=== PATIENT | female | born 1930 | race Caucasian/White ===

== ENCOUNTER 2016-06-03 18:01 | Emergency (ER) | payer MEDICARE, BC | END 2016-06-03 23:38 | disposition home or self-care (01) | DX: S20.229A Contusion of unspecified back wall of thorax, initial encounter (principal); W01.0XXA Fall on same level from slipping, tripping and stumbling without subsequent striking against object, initial encounter; G20 Parkinson's disease; M19.90 Unspecified osteoarthritis, unspecified site ==

== ENCOUNTER 2016-06-10 | Outpatient (CLI) | payer MEDICARE, BC | END 2016-06-10 12:40 | disposition critical access hospital (66) | DX: R46.4 Slowness and poor responsiveness (principal) | CPT/HCPCS: A0425; A0427 ==

== ENCOUNTER 2016-06-10 13:15 | Emergency (ER) | payer MEDICARE, BC ==
[2016-06-10] MEDS ORDERED: SODIUM CHLORIDE 0.9% 1,000 ML IV ONE (13:38)
== END 2016-06-10 15:50 | disposition home or self-care (01) ==
DX: R41.82 Altered mental status, unspecified (principal); I50.9 Heart failure, unspecified; G20 Parkinson's disease; R13.10 Dysphagia, unspecified; Z93.1 Gastrostomy status; M19.90 Unspecified osteoarthritis, unspecified site

== ENCOUNTER 2016-06-30 13:34 | Outpatient (CLI) | payer MEDICARE, BC | END 2016-06-30 13:35 | disposition home or self-care (01) | DX: I50.9 Heart failure, unspecified (principal) ==

== ENCOUNTER 2016-07-01 22:42 | Emergency (ER) | payer MEDICARE, BC ==
[2016-07-02] MEDS ORDERED: levoFLOXacin 250 MG TABLET PO STA (02:22)
[2016-07-02] MEDS ORDERED: levoFLOXacin 250 MG TABLET PO ONE (02:24)
== END 2016-07-02 02:37 | disposition home or self-care (01) ==
DX: J18.9 Pneumonia, unspecified organism (principal); G20 Parkinson's disease; K22.0 Achalasia of cardia; Z93.1 Gastrostomy status
CPT/HCPCS: 36415; 71020; 76705; 80053; 81003; 83690; 84484; 85025; 99283; 99284; A9270

== ENCOUNTER 2016-08-11 22:02 | Emergency (ER) | payer MEDICARE, BC ==
[2016-08-11] MEDS ORDERED: ALBUTEROL NEB 2.5 MG/3 ML INH STA (23:21)
[2016-08-11] MEDS ORDERED: ALBUTEROL NEB 2.5 MG/3 ML INH ONE (23:29)
[2016-08-12] MEDS ORDERED: ONDANSETRON 4 MG/2 ML VIAL IVP STA (00:08)
[2016-08-12] MEDS ORDERED: ONDANSETRON 4 MG/2 ML VIAL ONE (00:09)
[2016-08-12] MEDS ORDERED: LORazepam 2 MG/ML SYRINGE IVP STA ×2 (06:49→08:47)
[2016-08-12] MEDS ORDERED: LORazepam 2 MG/ML SYRINGE ONE ×2 (06:54→08:49)
[2016-08-12] MEDS ORDERED: SODIUM CHLORIDE 0.9% 1,000 ML IV ONE (11:21)
== END 2016-08-12 16:17 | disposition short-term general hospital (02) ==
DX: J69.0 Pneumonitis due to inhalation of food and vomit (principal); K22.2 Esophageal obstruction; G20 Parkinson's disease
CPT/HCPCS: 36415; 71010; 80048; 80053; 83690; 83880; 84484; 85025; 85379; 93005; 94640; 96361; 96365; 96375; 96376; 99284; 99285; J2060; J7613

== ENCOUNTER 2016-08-12 16:26 | Outpatient (CLI) | payer MEDICARE, BC | END 2016-08-12 16:27 | disposition short-term general hospital (02) | DX: R06.00 Dyspnea, unspecified (principal); R10.9 Unspecified abdominal pain; R09.89 Other specified symptoms and signs involving the circulatory and respiratory systems | CPT/HCPCS: A0170; A0425; A0426 ==

== ENCOUNTER 2016-10-10 14:07 | Outpatient (CLI) | payer MEDICARE, BC | END 2016-10-10 14:08 | disposition home or self-care (01) | DX: Z09 Encounter for follow-up examination after completed treatment for conditions other than malignant neoplasm (principal); Z87.01 Personal history of pneumonia (recurrent) ==

== ENCOUNTER 2017-04-19 09:51 | Emergency (ER) | payer MEDICARE, BC ==
--- NOTE | 2017-04-19 11:14 | XRAY Preliminary Report ---
Exam: XR SHOULDER 3 VIEW LT IMPRESSION: 1. No acute osseous abnormalities. 2. Degenerative changes of the left shoulder. [facility] SITE ID: [id number]
--- NOTE | 2017-04-19 11:16 | XRAY Report ---
EXAM: LEFT SHOULDER RADIOGRAPHY EXAM DATE: 04/19/2017 11:04 AM. CLINICAL HISTORY: Fall with pain . COMPARISON: None. TECHNIQUE: 3 views. FINDINGS: Bones: No acute fracture or bony lesion. Degenerative spurring. Type II acromion. Tiny well-corticate d calcification is seen along the lateral margin of the left humeral head likely degenerative in orig in or related to calcific tendinosis. Joints: Moderate to marked narrowing of the left glenohumeral joint. No dislocation. Soft tissues: The visualized hemithorax is unremarkable. No soft tissue swelling. IMPRESSION: 1. No acute osseous abnormalities. 2. Degenerative changes of the left shoulder. [facility] Referring Provider Line: [phone] SITE ID: [id number]
--- NOTE | 2017-04-19 13:13 | ED Physician Documentation ---
History of Present Illness - Stated complaint Stated Complaint: FEEDING TUBE - Chief complaint Chief Complaint: Trauma Ext - History obtained from History obtained from: Family (Pt with feeding tube for many years and this AM fell and the tube fell out.) Review of Systems Unable to obtain: Dementia, Other (Provided by family) Throat: denies: Oral lesions / sores Cardiac: denies: Pedal edema Respiratory: denies: Cough, Wheezing GI: denies: Vomiting, Constipation, Diarrhea : denies: Frequency Skin: denies: Rash, Lesions Musculoskeletal: reports: Extremity pain (left shoulder) Neurologic: denies: Head injury, LOC PD PAST MEDICAL HISTORY - Past Medical History Cardiovascular: None Respiratory: Pneumonia Neuro: Parkinson's, Tremors Endocrine/Autoimmune: None GI: Other : None Musculoskeletal: Osteoarthritis Derm: None - Past Surgical History Past Surgical History: Yes - Present Medications Home Medications: Ambulatory Orders Medication Instructions Recorded Confirmed Carbidopa/Levodopa [Carbidopa-Levo 1 each PO QID 09/23/13 04/19/17 ER 25-100 Tab] Levofloxacin [Levaquin] 500 mg PEG DAILY #6 tablet 08/12/16 04/19/17 - Allergies Allergies/Adverse Reactions: Allergies Allergy/AdvReac Type Severity Reaction Status Date / Time codeine Allergy Unknown Verified 04/19/17 10:02 - Social History Does the pt smoke?: No Smoking Status: Never smoker Does the pt drink ETOH?: No Does the pt have substance abuse?: No - Immunizations Immunizations are current?: No - POLST Patient has POLST: Yes POLST Status: Full Code PD ED PE NORMAL - Vitals Vital signs reviewed: Yes - General General: No acute distress, Well developed/nourished - HEENT HEENT: Atraumatic, Moist mucous membranes - Cardiac Cardiac: RRR, No murmur, No gallop, No rub - Respiratory Respiratory: No respiratory distress, Clear bilaterally - Abdomen Abdomen: Soft, Other (g tube stoma in place left ABD) - Derm Derm: Normal color, No rash - Extremities Extremities: No deformity. No: No tenderness to palpate (seems to be tender with palpation of the left shoulder. no tenderness with the left humerus or left elbow or left wrist) Results - Vitals Vitals: Vital Signs - 24 hr 04/19/17 04/19/17 10:23 12:00 Temperature 36.4 C L 36.7 C Heart Rate 91 81 Respiratory 16 16 Rate Blood Pressure 121/75 129/90 H O2 Saturation 96 95 Oxygen O2 Source [With Activity] Room air O2 Source Room air PD MEDICAL DECISION MAKING - ED course Complexity details: d/w family ED course: Elder placed in the stoma upon arrival. Pt had a 16F tube in place but we do not have those here so an 18 F tube was placed W/O problems. baloon filled with 7 CC sterile water. The tube was flushed with sterile water with return of fluid content. Pt tolerated well. No fx on the shoulder X-ray. Family given return precautions. Departure - Departure Disposition: 01 Home, Self Care Clinical Impression: Complication of feeding tube Condition: Good Instructions: ED G Tube Replacement Follow-Up: Rogelio James MD [Primary Care Provider] - Comments: Use the tube like normal. Return to the ER for any new or worsening for symptoms.
[2017-04-19 13:35] VITALS: BP 128/72
== END 2017-04-19 13:39 | disposition home or self-care (01) ==
LOC: ED 09:51
DX: T85.528A Displacement of other gastrointestinal prosthetic devices, implants and grafts, initial encounter (principal); K94.23 Gastrostomy malfunction; W01.0XXA Fall on same level from slipping, tripping and stumbling without subsequent striking against object, initial encounter; G20 Parkinson's disease; M19.90 Unspecified osteoarthritis, unspecified site
CPT/HCPCS: 43760; 99283

== ENCOUNTER 2017-06-15 10:44 | Emergency (ER) | payer MEDICARE, BC ==
[2017-06-15 10:54] VITALS: BP 136/78
--- NOTE | 2017-06-15 11:06 | ED Physician Documentation ---
History of Present Illness - Stated complaint Stated Complaint: MHE - Chief complaint Chief Complaint: General - Additonal information Additional information: hx from pt 86 y/o f brought in by daughter checked in as MHE but that is not actually the concern DOP states pt has dementia and confusion but that is not new pt has a G tube and thinks it is infected and daughter would like the tube checked no other concerns no fever no abd pain no NVD Review of Systems Constitutional: denies: Fever, Chills Throat: denies: Sore throat Cardiac: denies: Chest pain / pressure Respiratory: denies: Dyspnea GI: denies: Abdominal Pain, Nausea, Vomiting Skin: denies: Rash PD PAST MEDICAL HISTORY - Past Medical History Cardiovascular: None Respiratory: Pneumonia Neuro: Parkinson's, Tremors Endocrine/Autoimmune: None GI: Other : None Musculoskeletal: Osteoarthritis Derm: None - Past Surgical History Past Surgical History: Yes - Present Medications Home Medications: Ambulatory Orders Medication Instructions Recorded Confirmed Carbidopa/Levodopa [Carbidopa-Levo 1 each PO QID 09/23/13 06/15/17 ER 25-100 Tab] Levofloxacin [Levaquin] 500 mg PEG DAILY #6 tablet 08/12/16 06/15/17 - Allergies Allergies/Adverse Reactions: Allergies Allergy/AdvReac Type Severity Reaction Status Date / Time codeine Allergy Unknown Verified 04/19/17 10:02 - Social History Does the pt smoke?: No Smoking Status: Never smoker Does the pt drink ETOH?: No Does the pt have substance abuse?: No - Immunizations Immunizations are current?: No - POLST Patient has POLST: Yes POLST Status: Full Code PD ED PE NORMAL - Vitals Vital signs reviewed: Yes - Cardiac Cardiac: RRR - Respiratory Respiratory: No respiratory distress, Clear bilaterally - Abdomen Abdomen: Soft, Non tender, Other (G tub seems secure and s erythema or drainage and non tender) Results - Vitals Vitals: Vital Signs - 24 hr 06/15/17 10:50 Temperature 36.5 C Heart Rate 81 Respiratory 14 Rate Blood Pressure 136/78 H O2 Saturation 98 Oxygen O2 Source [] Room air O2 Source Room air - Rads (name of study) KUB Radiology: See rad report (contrast in stomach. After pt dc final rad report recieved and there is narrowing of distal stomach which could be collapsed stomach but rad concerned about possible stricture or tumor, no prx dilitation) PD MEDICAL DECISION MAKING - ED course ED course: will get plain film to confirm palcement and dc if OK tube in place pt dced rad report received after dc and rad concerned distal stomach narrowed - collase vs stricture vs tumor - pt had no distension, tube feeing problems or NV , she has the tube because her esoph has "been stretched so many times she cannot swallow", I called caregiver ralyed all deatils of rad report and to return for distension NV and else to fup PMD and consider a rpt xray at next visit Departure - Departure Disposition: Home, Self Care Clinical Impression: PEG (percutaneous endoscopic gastrostomy) status Condition: Good Follow-Up: Rogelio James MD [Primary Care Provider] - Comments: The tube does not seem to be infected and is in proper location and safe to use
--- NOTE | 2017-06-15 12:59 | XRAY Report ---
EXAM: ABDOMEN RADIOGRAPHY EXAM DATE: 06/15/2017 11:54 AM. CLINICAL HISTORY: G tube placement. Parkinson's disease and dementia. Soft abdomen on exam. COMPARISON: Abdominal pelvic CT 09/23/2013. TECHNIQUE: 1 view. Patient received 20 mL Gastrografin just prior to present plain film. FINDINGS: Bowel Gas Pattern: Prominent stool within known redundant, low-lying transverse colon versus superimp osed sigmoid colon within the mid-upper pelvis. Gastrografin is noted within the stomach. No leak. Balloon for percutaneous gastrostomy tube is withi n mid gastric body. There is nonspecific circumferential narrowing of mid gastric body just inferior to the PEG tube ball oon. Other: None. IMPRESSION: 1. Normally positioned PEG tube. 2. Nonspecific circumferential narrowing of mid gastric body just inferior to the PEG tube balloon. Q uestion if due to collapsed stomach, stricture/scarring or tumor. Gastric fundus and upper body of st [place] are not dilated. 3. Prominent stool overlying the mid-upper pelvis. Potential constipation. 4. In retrospect, a nonobstructed small bowel loop extended into a right inguinal hernia on prior CT. No bowel obstruction evident on prior CT or present plain film. Prominent left inguinal canal fat ve rsus hernia on prior CT also noted. Exam discussed with Dr. Garcia on day of study at 12:54 PM. [facility] Referring Provider Line: [phone] SITE ID: [id number]
== END 2017-06-15 12:30 | disposition home or self-care (01) ==
LOC: ED 10:44
DX: Z43.1 Encounter for attention to gastrostomy (principal); G20 Parkinson's disease; F02.80 Dementia in other diseases classified elsewhere, unspecified severity, without behavioral disturbance, psychotic disturbance, mood disturbance, and anxiety
CPT/HCPCS: 74018; 80053; 80307; 80320; 80329; 83690; 84443; 85025; 99282; 99283

== ENCOUNTER 2017-09-03 13:56 | Outpatient (CLI) | payer MEDICARE, BC ==
--- NOTE | 2017-09-03 18:07 | XRAY Report ---
CHEST, TWO VIEWS: 09/03/2017 HISTORY: Cough. COMPARISON: 10/10/2016 FINDINGS: There is a left basilar air space process consistent with pneumonia, left greater than right small pleural effusions are also now present. Clear upper lungs. No pneumothorax. Heart size appears enlarged. Stable degenerative changes in the spine. IMPRESSION: LEFT LOWER LOBE PNEUMONIA AND SMALL BILATERAL PLEURAL EFFUSIONS NOW PRESENT. TD: 09/03/2017 18:06
== END 2017-09-03 13:57 | disposition home or self-care (01) ==
LOC: DI.S 13:56
PROVIDERS: ATTEND Nurse Practitioner Family
DX: J18.9 Pneumonia, unspecified organism (principal); J90 Pleural effusion, not elsewhere classified
CPT/HCPCS: 71046

== ENCOUNTER 2017-10-19 20:52 | Emergency (ER) | payer MEDICARE, BC ==
[2017-10-19 21:18] VITALS: BP 135/87
--- NOTE | 2017-10-19 21:51 | ED Physician Documentation ---
PD HPI LOWER EXT INJURY - Stated complaint Stated Complaint: TOE INJURY - Chief complaint Chief Complaint: Ext Problem - History obtained from History obtained from: Patient, Family - History of Present Illness PD HPI LOW EXT INJURY LOCATION: Right, Toe (little toe caught edge of metal walker and got laceration. Some crushing component but not firmly.) Type of injury: Blunt / blow, Laceration. No: Twist Where injury occurred: Home Timing - onset: Today Timing - details: Abrupt onset Review of Systems Skin: reports: Laceration (s) Musculoskeletal: denies: Neck pain, Back pain Neurologic: reports: Generalized weakness. denies: Focal weakness, Numbness PD PAST MEDICAL HISTORY - Past Medical History Cardiovascular: None Respiratory: Pneumonia Neuro: Parkinson's Endocrine/Autoimmune: None GI: Other : None Musculoskeletal: Osteoarthritis Derm: None - Past Surgical History Past Surgical History: Yes - Present Medications Home Medications: Ambulatory Orders Medication Instructions Recorded Confirmed Carbidopa/Levodopa [Carbidopa-Levo 1 each PO QID 09/23/13 10/19/17 ER 25-100 Tab] - Allergies Allergies/Adverse Reactions: Allergies Allergy/AdvReac Type Severity Reaction Status Date / Time codeine Allergy Unknown Verified 10/19/17 21:18 - Social History Does the pt smoke?: No Smoking Status: Never smoker Does the pt drink ETOH?: No Does the pt have substance abuse?: No - Immunizations Immunizations are current?: No - POLST Patient has POLST: Yes POLST Status: Full Code PD ED PE NORMAL - Vitals Vital signs reviewed: Yes - General General: Alert and oriented X 3, No acute distress, Well developed/nourished - Derm Derm: Normal color, Warm and dry - Extremities Extremities: Other (right little toe with superficial laceration dorsal MTP area. No obvious deformity. Normal ROM passively and actively. distal toe and nail are okay. ) Results - Vitals Vitals: Vital Signs - 24 hr 10/19/17 21:08 Temperature 36.5 C Heart Rate 75 Respiratory 15 Rate Blood Pressure 135/87 H O2 Saturation 97 Oxygen O2 Source [With Activity] Room air O2 Source Room air PD MEDICAL DECISION MAKING - ED course Complexity details: considered differential (peeled skin at top of toe with superficial lac. Does not feel fractured clinically. Discussed with family and patient and opted to not get xray. Steri strips applied to wound after cleanseing it. ), d/w patient, d/w family Departure - Departure Disposition: 01 Home, Self Care Clinical Impression: Crush injury, toe Qualifiers: Encounter type: initial encounter Laterality: right Qualified Code(s): S97.101A - Crushing injury of unspecified right toe(s), initial encounter Toe laceration Qualifiers: Encounter type: initial encounter Toe: lesser toe Damage to nail status: without damage Foreign body presence: without foreign body Laterality: right Qualified Code(s): S91.114A - Laceration without foreign body of right lesser toe(s) without damage to nail, initial encounter Condition: Stable Record reviewed to determine appropriate education?: Yes Instructions: ED Abrasion Follow-Up: Mimi Olea ARNP [Primary Care Provider] - Comments: Tylenol if needed for pains. Keep the Steri-Strips clean and dry on the toe and allow them to fall off after several days. Recheck if signs of infection. Clinically it does not seem like a toe fracture and there would not be much difference in treatment so reasonable to forego the x-ray. Discharge Date/Time: 10/19/17 22:17
== END 2017-10-19 22:17 | disposition home or self-care (01) ==
LOC: ED 20:52
DX: S97.121A Crushing injury of right lesser toe(s), initial encounter (principal); S91.114A Laceration without foreign body of right lesser toe(s) without damage to nail, initial encounter; W23.0XXA Caught, crushed, jammed, or pinched between moving objects, initial encounter; Y92.009 Unspecified place in unspecified non-institutional (private) residence as the place of occurrence of the external cause; G20 Parkinson's disease
CPT/HCPCS: 99282

== ENCOUNTER 2017-12-08 15:55 | Emergency (ER) | payer MEDICARE, BC ==
[2017-12-08] MEDS ORDERED: BUFFERED LIDOCAINE 10 ML SYRINGE SUBQ STA (16:32)
[2017-12-08] MEDS ORDERED: ACETAMINOPHEN 325 MG TABLET PO STA (16:36)
[2017-12-08] MEDS ORDERED: BUFFERED LIDOCAINE 10 ML SYRINGE ONE (16:45)
--- NOTE | 2017-12-08 16:59 | ED Physician Documentation ---
PD HPI LOWER EXT INJURY - Stated complaint Stated Complaint: LT FOOT INJ - Chief complaint Chief Complaint: Ext Problem - History obtained from History obtained from: Family - History of Present Illness PD HPI LOW EXT INJURY LOCATION: Left, Toe (middle) Type of injury: Blunt / blow Where injury occurred: Home Timing - onset: Enter time (829), Today Timing - duration: Hours Timing - details: Abrupt onset, Still present Improved by: Rest, Immobilization Worsened by: Moving, Palpating Associated symptoms: No: Weakness, Numbness, Tingling Similar symptoms before: Diagnosis (laceration) Recently seen: Clinic - Additional information Additional information: 87-year-old female with a history of Parkinson's disease was on her bedside commode today and she likes to push up and scoot the commode away. She pushed up to go to the commode and it came back down on top of her foot. This lacerated her left middle toe. Review of Systems Constitutional: denies: Fever Respiratory: denies: Cough GI: denies: Vomiting Skin: reports: Laceration (s) Musculoskeletal: reports: Extremity pain Neurologic: denies: Generalized weakness, Focal weakness, Numbness PD PAST MEDICAL HISTORY - Past Medical History Past Medical History: Yes Cardiovascular: None Respiratory: Pneumonia Neuro: Parkinson's Endocrine/Autoimmune: None GI: Other : None Musculoskeletal: Osteoarthritis Derm: None - Past Surgical History Past Surgical History: Yes - Present Medications Home Medications: Ambulatory Orders Medication Instructions Recorded Confirmed Carbidopa/Levodopa [Carbidopa-Levo 1 each PO QID 09/23/13 10/19/17 ER 25-100 Tab] - Allergies Allergies/Adverse Reactions: Allergies Allergy/AdvReac Type Severity Reaction Status Date / Time codeine Allergy Unknown Verified 10/19/17 21:18 - Social History Does the pt smoke?: No Smoking Status: Never smoker Does the pt drink ETOH?: No Does the pt have substance abuse?: No - Immunizations Immunizations are current?: Yes - POLST Patient has POLST: Yes POLST Status: Full Code PD ED PE NORMAL - Vitals Vital signs reviewed: Yes (normal ) - General General: No acute distress, Well developed/nourished - HEENT HEENT: Atraumatic, PERRL, EOMI - Respiratory Respiratory: No respiratory distress - Derm Derm: Normal color, Warm and dry, No rash - Extremities Extremities: No deformity, No edema, Other (over the medial aspect of the left second toe there is a laceration that penetrates through the dermis to the underlying fascia. The laceration is about 2.5cm and starts over the dorsum of the proximal phlange and ends over the web space. ) - Neuro Neuro: No motor deficit, No sensory deficit Eye Opening: Spontaneous Motor: Obeys Commands Verbal: Confused GCS Score: 14 - Psych Psych: Normal mood, Normal affect Results - Vitals Vitals: Vital Signs - 24 hr 12/08/17 16:09 Temperature 36.4 C L Heart Rate 77 Respiratory 16 Rate Blood Pressure 128/78 O2 Saturation 95 Oxygen O2 Source [With Activity] Room air O2 Source Room air Procedures - Laceration (location) left middle toe Length in cm: 2.5 Wound type: Curved, Flap Neurovascular status: Sensory intact, Motor intact, Vascular intact Anesthesia: Lidocaine 1%, With bicarb Wound Preparation: Hibiclens, Irrigated copiously NS, Wound explored, To the base Skin layer closure: Nylon, Interrupted, Size #-0 - enter number (4-0), Sutures - enter # (5) Other: Patient tolerated well, No complications, Neurovascular intact, Dressing applied, Tetanus UTD Complexity: Simple PD MEDICAL DECISION MAKING - ED course Complexity details: considered differential, d/w patient, d/w family ED course: 87-year-old female with a laceration to her left middle toe and into the webspace has a laceration that requires suturing. This is cleansed and sutured patient tolerates this well. - Sepsis Event Vital Signs: Vital Signs - 24 hr 12/08/17 16:09 Temperature 36.4 C L Heart Rate 77 Respiratory 16 Rate Blood Pressure 128/78 O2 Saturation 95 Oxygen O2 Source [With Activity] Room air O2 Source Room air Departure - Departure Disposition: 01 Home, Self Care Clinical Impression: Toe laceration Qualifiers: Encounter type: initial encounter Toe: lesser toe Damage to nail status: without damage Foreign body presence: without foreign body Laterality: left Qualified Code(s): S91.115A - Laceration without foreign body of left lesser toe (s) without damage to nail, initial encounter Instructions: ED Laceration Foot Follow-Up: Mimi Olea ARNP [Primary Care Provider] - Comments: sutures should be removed in 7-10 days
[2017-12-08 17:32] VITALS: BP 134/79
== END 2017-12-08 17:30 | disposition home or self-care (01) ==
LOC: ED 15:55
DX: S91.115A Laceration without foreign body of left lesser toe(s) without damage to nail, initial encounter (principal); G20 Parkinson's disease; W22.8XXA Striking against or struck by other objects, initial encounter; Y92.009 Unspecified place in unspecified non-institutional (private) residence as the place of occurrence of the external cause
CPT/HCPCS: 12001; 99282; 99283; A9270

== ENCOUNTER 2018-01-03 11:53 | Emergency (ER) | payer MEDICARE, BC ==
[2018-01-03 12:01] VITALS: BP 143/105
--- NOTE | 2018-01-03 12:42 | ED Physician Documentation ---
History of Present Illness - Stated complaint Stated Complaint: NOT FEELING WELL - Chief complaint Chief Complaint: General - History obtained from History obtained from: Patient, Family (daughter mostly) - History of Present Illness Timing: Last night (87yo with Parkinson's/dementia with varying complaints since last night of stomach upset (nausea, no pain), maybe neck pain. Daughter thinks due to stress- 2 friends in the last week. Son sick with vomiting. Nl BM today. No fevers.) Review of Systems Unable to obtain: Dementia PD PAST MEDICAL HISTORY - Past Medical History Cardiovascular: None Respiratory: Pneumonia Neuro: Parkinson's Endocrine/Autoimmune: None GI: Other : None Musculoskeletal: Osteoarthritis Derm: None - Past Surgical History Past Surgical History: Yes - Present Medications Home Medications: Ambulatory Orders Medication Instructions Recorded Confirmed Carbidopa/Levodopa [Carbidopa-Levo 1 each PO 01/03/18 ER 25-100 Tab] - Social History Does the pt smoke?: No Smoking Status: Never smoker Does the pt drink ETOH?: No Does the pt have substance abuse?: No - Immunizations Immunizations are current?: Yes - POLST Patient has POLST: Yes POLST Status: Full Code PD ED PE NORMAL - Vitals Vital signs reviewed: Yes - General General: No acute distress, Well developed/nourished, Other (parkinsons tremor, a/o x 2) - HEENT HEENT: PERRL, EOMI, Pharynx benign - Neck Neck: Supple, no meningeal sign, No bony TTP - Cardiac Cardiac: RRR, No murmur - Respiratory Respiratory: No respiratory distress, Clear bilaterally - Abdomen Abdomen: Normal bowel sounds, Soft, Non tender - Back Back: No CVA TTP, No spinal TTP - Derm Derm: Normal color, Warm and dry - Extremities Extremities: No edema, No calf tenderness / cord - 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 Eye Opening: Spontaneous Motor: Obeys Commands - Psych Psych: Normal mood, Normal affect Results - Vitals Vitals: Vital Signs - 24 hr 01/03/18 11:59 Temperature 36.2 C L Heart Rate 74 Respiratory 18 Rate Blood Pressure 143/105 H O2 Saturation 97 Oxygen O2 Source [With Activity] Room air O2 Source Room air - Labs Labs: Laboratory Tests 01/03/18 01/03/18 01/03/18 12:45 12:45 12:45 WBC 6.1 RBC 4.54 Hgb 13.0 Hct 39.8 MCV 87.7 MCH 28.7 MCHC 32.7 RDW 14.8 Plt Count 297 MPV 8.9 Neut # (Auto) 4.5 Lymph # (Auto) 1.2 L [place] # (Auto) 0.3 Eos # (Auto) 0.0 Baso # (Auto) 0.0 Absolute Nucleated RBC 0.00 Nucleated RBC % 0.0 Sodium 139 Potassium 3.8 Chloride 102 Carbon Dioxide 29 Anion Gap 8.0 BUN 23 H Creatinine 0.6 Estimated GFR (MDRD) 95 Glucose 97 Calcium 8.9 Total Bilirubin 0.5 AST 22 ALT < 10 L Alkaline Phosphatase 109 Troponin I < 0.04 Total Protein 7.7 Albumin 3.5 Globulin 4.2 Albumin/Globulin Ratio 0.8 L Lipase 29 Urine Color Urine Clarity Urine pH Ur Specific [place] Urine Protein Urine Glucose (UA) Urine Ketones Urine Occult Blood Urine Nitrite Urine Bilirubin Urine Urobilinogen Ur Leukocyte Esterase Ur Microscopic Review Urine Culture Comments 01/03/18 13:05 WBC RBC Hgb Hct MCV MCH MCHC RDW Plt Count MPV Neut # (Auto) Lymph # (Auto) [place] # (Auto) Eos # (Auto) Baso # (Auto) Absolute Nucleated RBC Nucleated RBC % Sodium Potassium Chloride Carbon Dioxide Anion Gap BUN Creatinine Estimated GFR (MDRD) Glucose Calcium Total Bilirubin AST ALT Alkaline Phosphatase Troponin I Total Protein Albumin Globulin Albumin/Globulin Ratio Lipase Urine Color YELLOW Urine Clarity CLEAR Urine pH 7.5 Ur Specific [place] 1.010 Urine Protein NEGATIVE Urine Glucose (UA) NEGATIVE Urine Ketones NEGATIVE Urine Occult Blood NEGATIVE Urine Nitrite NEGATIVE Urine Bilirubin NEGATIVE Urine Urobilinogen 0.2 (NORMAL) Ur Leukocyte Esterase NEGATIVE Ur Microscopic Review NOT INDICATED Urine Culture Comments NOT INDICATED PD MEDICAL DECISION MAKING - ED course ED course: 87-year-old woman with Parkinson's and some memory issues presents with nonspecific symptoms and complaints this morning that seemed to vary whenever somebody asks her. She appears well and has unremarkable vital signs and the daughter opines that nothing is really wrong with her. Given her age screening labs were done without relevant findings. - Sepsis Event Vital Signs: Vital Signs - 24 hr 01/03/18 11:59 Temperature 36.2 C L Heart Rate 74 Respiratory 18 Rate Blood Pressure 143/105 H O2 Saturation 97 Oxygen O2 Source [With Activity] Room air O2 Source Room air Departure - Departure Disposition: 01 Home, Self Care Clinical Impression: Parkinson disease, Nausea Hypertension Qualifiers: Hypertension type: essential hypertension Qualified Code(s): I10 - Essential ( primary) hypertension Condition: Good Record reviewed to determine appropriate education?: Yes Comments: Lab work and urinalysis are normal, her vital signs are relatively unremarkable except for mildly high blood pressure and nothing Pertinent is found on examination. That said if she worsens in any way or has new persisting complaints please return for reevaluation.
[2018-01-03 12:52] LABS: BASOPHILS % (AUTO) 0.7 %; EOSINOPHILS % (AUTO) 0.8 %; LYMPHOCYTES # (AUTO) 1.2 10^3/uL (1.5-3.5); LYMPHOCYTES % (AUTO) 19.2 %; MEAN CORPUSCULAR HEMOGLOBIN 28.7 pg (27.0-31.0); MEAN CORPUSCULAR HGB CONC 32.7 g/dL (32.0-36.0); MEAN CORPUSCULAR VOLUME 87.7 fL (81.0-99.0); MEAN PLATELET VOLUME 8.9 fL (7.9-10.8); MONOCYTES # (AUTO) 0.3 10^3/uL (0.0-1.0); MONOCYTES % (AUTO) 5.5 %; NEUTROPHILS # (AUTO) 4.5 10^3/uL (1.5-6.6); NEUTROPHILS % (AUTO) 73.8 %; PLT - PLATELET COUNT 297 10^3/uL (130-450); RED BLOOD COUNT 4.54 10^6/uL (4.20-5.40); RED CELL DISTRIBUTION WIDTH 14.8 % (12.0-15.0); WHITE BLOOD COUNT 6.1 x10^3/uL (4.8-10.8)
[2018-01-03 13:03] LABS: ALBUMIN 3.5 g/dL (3.2-5.5); ALBUMIN/GLOBULIN RATIO 0.8 (1.0-2.2); ALKALINE PHOSPHATASE 109 IU/L (42-121); ALT ALANINE AMINOTRANSFERASE < 10 IU/L (10-60); AST ASPARTATE AMINOTRANSFERASE 22 IU/L (10-42); BILIRUBIN,TOTAL 0.5 mg/dL (0.2-1.0); BUN - BLOOD UREA NITROGEN 23 mg/dL (6-20); CALCIUM 8.9 mg/dL (8.5-10.3); CARBON DIOXIDE - CO2 29 mmol/L (21-32); CHLORIDE 102 mmol/L (101-111); CREATININE 0.6 mg/dL (0.4-1.0); GFR - MDRD 95 (>89); GLUCOSE 97 mg/dL (70-100); LIPASE 29 U/L (22-51); SODIUM 139 mmol/L (135-145); TOTAL PROTEIN 7.7 g/dL (6.7-8.2)
[2018-01-03 13:13] LABS: BILIRUBIN,URINE NEGATIVE (NEGATIVE); GLUCOSE, URINE (UA) NEGATIVE (NEGATIVE); KETONES,URINE (UA) NEGATIVE (NEGATIVE); LEUKOCYTE ESTERASE, URINE NEGATIVE (NEGATIVE); NITRITE,URINE NEGATIVE (NEGATIVE); OCCULT BLOOD,URINE NEGATIVE (NEGATIVE); PH,URINE 7.5 PH (5.0-7.5); PROTEIN,URINE NEGATIVE (NEGATIVE); UROBILINOGEN,URINE 0.2 (NORMAL) E.U./dL (NORMAL)
[2018-01-03 13:14] LABS: CLARITY,URINE CLEAR (CLEAR)
== END 2018-01-03 13:35 | disposition home or self-care (01) ==
LOC: ED 11:53
DX: G20 Parkinson's disease (principal); R11.0 Nausea; I10 Essential (primary) hypertension
CPT/HCPCS: 36415; 80053; 81001; 81003; 83690; 84484; 85025; 87086; 99283

== ENCOUNTER 2018-02-10 11:29 | Emergency (ER) | payer MEDICARE, BC ==
--- NOTE | 2018-02-10 12:14 | ED Physician Documentation ---
PD HPI HEENT - Stated complaint Stated Complaint: MOUTH PX/DRAINAGE - Chief complaint Chief Complaint: Abd Pain - History obtained from History obtained from: Patient - History of Present Illness Timing - onset: How many days ago (2-3) Timing - duration: Days (2-3) Timing - details: Gradual onset Location: Mouth (Patient lives at home with her daughters. 1 of them noted some purulent drainage from the roof of the mouth and had been cleaning that out. The patient had also had some coughing congestion over the past few days. She has had general weakness. They brought her to her primary care today and she is noted to have low oxygen level and congested lung sounds. They reportedly did do a culture of the roof of her mouth. She was referred to the ER for further evaluation.) Worsens: Swalllowing Associated symptoms: Congestion, Cough. No: Fever, Swollen nodes Similar symptoms before: Diagnosis (has COPD, but does not use oxygen at home. Has had pneumonia in the past.) Review of Systems Constitutional: reports: Fatigue. denies: Fever Nose: reports: Sinus pressure / pain (some frontal pressure.). denies: Rhinorrhea / runny nose, Congestion Throat: reports: Oral lesions / sores (Patient has some pain at roof of mouth and has had some drainage from there, per daughter.) Cardiac: denies: Chest pain / pressure, Palpitations Respiratory: reports: Dyspnea, Cough GI: reports: Abdominal Pain (upper pain last night). denies: Vomiting, Diarrhea : reports: Incontinent Skin: denies: Rash, Lesions Musculoskeletal: denies: Extremity swelling Neurologic: reports: Generalized weakness. denies: Focal weakness, Numbness, Altered mental status Endocrine: reports: Weight loss Immunocompromised: denies: Immunocompromised PD PAST MEDICAL HISTORY - Past Medical History Cardiovascular: None Respiratory: Pneumonia Neuro: Parkinson's Endocrine/Autoimmune: None GI: Other : None Musculoskeletal: Osteoarthritis Derm: None - Past Surgical History Past Surgical History: Yes - Present Medications Home Medications: Ambulatory Orders Medication Instructions Recorded Confirmed Carbidopa/Levodopa [Carbidopa-Levo 1 each PO 01/03/18 ER 25-100 Tab] - Allergies Allergies/Adverse Reactions: Allergies Allergy/AdvReac Type Severity Reaction Status Date / Time No Known Drug Allergies Allergy Verified 02/10/18 11:50 - Social History Does the pt smoke?: No Smoking Status: Never smoker Does the pt drink ETOH?: No Does the pt have substance abuse?: No - Family History Family history: reports: Non contributory - Immunizations Immunizations are current?: Yes - POLST Patient has POLST: Yes POLST Status: Full Code PD ED PE NORMAL - Vitals Vital signs reviewed: Yes - General General: No acute distress. No: Well developed/nourished (frail and decreased skin turgor. ) - HEENT HEENT: Ears normal, Other (mild redness and swelling roof of mouth; no noted ulceration per se. Small tiny drop of pus noted on pallate without obvious ulceration. ). No: Moist mucous membranes - Neck Neck: Supple, no meningeal sign, No adenopathy - Cardiac Cardiac: RRR, No murmur - Respiratory Respiratory: No: Clear bilaterally (Congested sounds left base. Diffuse wheezing. ) - Abdomen Abdomen: Soft, Non tender - Back Back: No CVA TTP - Derm Derm: Normal color, Warm and dry - Extremities Extremities: No deformity, No tenderness to palpate, Normal ROM s pain, No edema, No calf tenderness / cord - Neuro Neuro: Alert and oriented X 3, No motor deficit, Normal speech - Psych Psych: Normal mood Results - Vitals Vitals: Vital Signs - 24 hr 02/10/18 02/10/18 02/10/18 11:41 12:39 13:09 Temperature 36.6 C Heart Rate 72 74 76 Respiratory 13 22 26 H Rate Blood Pressure 104/55 L 143/105 H O2 Saturation 88 L 91 L 02/10/18 14:35 Temperature Heart Rate 87 Respiratory 20 Rate Blood Pressure 136/100 H O2 Saturation 92 Oxygen O2 Source [] Room air O2 Source Room air - Labs Labs: Laboratory Tests 02/10/18 02/10/18 02/10/18 12:10 12:10 12:10 WBC 12.2 H RBC 4.02 L Hgb 11.6 L Hct 35.0 L MCV 87.2 MCH 28.8 MCHC 33.1 RDW 14.6 Plt Count 252 MPV 10.0 Neut # (Auto) 10.3 H Lymph # (Auto) 0.8 L Craven # (Auto) 1.1 H Eos # (Auto) 0.0 Baso # (Auto) 0.1 Absolute Nucleated RBC 0.00 Nucleated RBC % 0.0 Sodium 136 Potassium 3.9 Chloride 99 L Carbon Dioxide 28 Anion Gap 9.0 BUN 26 H Creatinine 0.6 Estimated GFR (MDRD) 95 Glucose 99 Lactic Acid 1.2 Calcium 8.5 Magnesium Total Bilirubin 0.6 AST 21 ALT < 10 L Alkaline Phosphatase 140 H Total Protein 7.4 Albumin 2.8 L Globulin 4.6 H Albumin/Globulin Ratio 0.6 L Lipase 21 L 02/10/18 12:10 WBC RBC Hgb Hct MCV MCH MCHC RDW Plt Count MPV Neut # (Auto) Lymph # (Auto) Craven # (Auto) Eos # (Auto) Baso # (Auto) Absolute Nucleated RBC Nucleated RBC % Sodium Potassium Chloride Carbon Dioxide Anion Gap BUN Creatinine Estimated GFR (MDRD) Glucose Lactic Acid Calcium Magnesium 2.4 Total Bilirubin AST ALT Alkaline Phosphatase Total Protein Albumin Globulin Albumin/Globulin Ratio Lipase - Rads (name of study) chest xray Radiology: Prelim report reviewed, EMP read contemporaneously (left lower infiltrate. ) sinus CT Radiology: Prelim report reviewed (chronic appearing sphenoid sinusitis.) PD MEDICAL DECISION MAKING - ED course Complexity details: reviewed results, re-evaluated patient (Breathing comfortably. Her lung sounds are still a little coarse on the left base. O2 sats are 92% or better on 2 L nasal cannula. Off oxygen she goes down to 86- 88%. Blood pressure and heart rate are stable. She does have apparent pneumonia on x-ray and does not typically use home oxygen. I think she will need hospitalization for further care with antibiotics for pneumonia and also to consider the palate area possible cellulitis type infection.), considered differential, d/w patient, d/w family, other (No beds available at [facility]. [facility] and [facility] were full as well. [facility] actually has beds available and I talked to the hospitalist and there able to accept the patient in transfer. I discussed with the patient and her family that there are not other beds available in the area and [facility] is doing available right now short of going down into [place].) - Sepsis Event Vital Signs: Vital Signs - 24 hr 02/10/18 02/10/18 02/10/18 11:41 12:39 13:09 Temperature 36.6 C Heart Rate 72 74 76 Respiratory 13 22 26 H Rate Blood Pressure 104/55 L 143/105 H O2 Saturation 88 L 91 L 02/10/18 14:35 Temperature Heart Rate 87 Respiratory 20 Rate Blood Pressure 136/100 H O2 Saturation 92 Oxygen O2 Source [] Room air O2 Source Room air Departure - Departure Disposition: 02 Transfer Acute Care Hosp Clinical Impression: Dehydration, Hypoxia, Cellulitis of palate Pneumonia Qualifiers: Pneumonia type: due to unspecified organism Laterality: left Lung location: lower lobe of lung Qualified Code(s): J18.1 - Lobar pneumonia, unspecified organism Condition: Stable Record reviewed to determine appropriate education?: Yes
[2018-02-10 12:42] LABS: BASOPHILS # (AUTO) 0.1 10^3/uL (0.0-0.1); BASOPHILS % (AUTO) 0.4 %; HGB - HEMOGLOBIN 11.6 g/dL (12.0-16.0); LYMPHOCYTES # (AUTO) 0.8 10^3/uL (1.5-3.5); LYMPHOCYTES % (AUTO) 6.5 %; MEAN CORPUSCULAR HEMOGLOBIN 28.8 pg (27.0-31.0); MEAN CORPUSCULAR HGB CONC 33.1 g/dL (32.0-36.0); MEAN CORPUSCULAR VOLUME 87.2 fL (81.0-99.0); MONOCYTES # (AUTO) 1.1 10^3/uL (0.0-1.0); MONOCYTES % (AUTO) 8.9 %; NEUTROPHILS # (AUTO) 10.3 10^3/uL (1.5-6.6); NEUTROPHILS % (AUTO) 84.2 %; PLT - PLATELET COUNT 252 10^3/uL (130-450); RED BLOOD COUNT 4.02 10^6/uL (4.20-5.40); RED CELL DISTRIBUTION WIDTH 14.6 % (12.0-15.0); WHITE BLOOD COUNT 12.2 x10^3/uL (4.8-10.8)
[2018-02-10] MEDS ORDERED: ALBUTEROL NEB 2.5 MG/3 ML INH STA ×2 (12:42→15:07)
[2018-02-10] MEDS ORDERED: cefTRIAXone 1 GM in SODIUM CHLORIDE 0.9% MINIBAG 100 ML IV STA (12:43)
[2018-02-10 12:50] LABS: ALBUMIN 2.8 g/dL (3.2-5.5); ALBUMIN/GLOBULIN RATIO 0.6 (1.0-2.2); ALKALINE PHOSPHATASE 140 IU/L (42-121); ALT ALANINE AMINOTRANSFERASE < 10 IU/L (10-60); AST ASPARTATE AMINOTRANSFERASE 21 IU/L (10-42); BILIRUBIN,TOTAL 0.6 mg/dL (0.2-1.0); BUN - BLOOD UREA NITROGEN 26 mg/dL (6-20); CALCIUM 8.5 mg/dL (8.5-10.3); CARBON DIOXIDE - CO2 28 mmol/L (21-32); CHLORIDE 99 mmol/L (101-111); CREATININE 0.6 mg/dL (0.4-1.0); GFR - MDRD 95 (>89); GLUCOSE 99 mg/dL (70-100); LIPASE 21 U/L (22-51); SODIUM 136 mmol/L (135-145); TOTAL PROTEIN 7.4 g/dL (6.7-8.2)
--- NOTE | 2018-02-10 13:26 | XRAY Report ---
Reason: SOA Procedure Date: 02/10/2018 Accession Number: [id number] / [id number] Procedure: XR - Chest 2 View X-Ray CPT Code: 72986 FULL RESULT: EXAM: CHEST RADIOGRAPHY EXAM DATE: 02/10/2018 12:54 PM. CLINICAL HISTORY: Shortness of breath. COMPARISON: CHEST 2 VIEW 09/03/2017. TECHNIQUE: 2 views. FINDINGS: Lungs/Pleura: Overexpanded, emphysematous changes, calcified pleural plaques. Moderate bilateral perihilar interstitial infiltrates. Airspace consolidation left lower lobe. No effusion or pneumothorax. Mediastinum: Stable mild cardiomegaly. Other: None. IMPRESSION: 1. Acute on chronic lung disease consisting of left lung base infiltrate. 2. Bilateral perihilar interstitial infiltrates consistent with either interstitial edema versus airway disease. 3. Mild cardiomegaly. RADIA
[2018-02-10] MEDS ORDERED: AZITHROMYCIN INJ 500 MG in SODIUM CHLORIDE 0.9% 250 ML IV STA ×2 (13:58→15:04)
[2018-02-10] MEDS ORDERED: DOXYCYCLINE INJ 100 MG in SODIUM CHLORIDE 0.9% MINIBAG 100 ML IV STA (14:23)
--- NOTE | 2018-02-10 14:25 | CT Report ---
Reason: drainage from roof of mouth for days Procedure Date: 02/10/2018 Accession Number: [id number] / [id number] Procedure: CT - Sinuses CPT Code: FULL RESULT: EXAM: CT SINUS EXAM DATE: 02/10/2018 01:50 PM. HISTORY: Ulcer top of mouth, burst and is draining. COMPARISONS: Head CT 10/20/2015. TECHNIQUE: Routine multi-axial CT imaging performed through the sinuses. Iodinated IV contrast: None. Reconstructions: Coronal and sagittal. In accordance with CT protocol optimization, one or more of the following dose reduction techniques were utilized for this exam: automated exposure control, adjustment of mA and/or KV based on patient size, or use of iterative reconstructive technique. FINDINGS: RIGHT Frontal: Absent. Ethmoid: Normal. Maxillary: Tiny mucus retention cyst. Sphenoid: Moderate chronic appearing disease. Drainage Pathways: The frontal recess, ostiomeatal complex and sphenoethmoidal recess are patent. LEFT Frontal: Normal. Ethmoid: Normal. Maxillary: Tiny mucus retention cyst. Sphenoid: Normal. Drainage Pathways: The frontal recess, ostiomeatal complex and sphenoethmoidal recess are patent. Nasal Cavity: no mass or significant anatomic abnormality evident. Osseous Structures: Unremarkable. No erosive findings. Orbits: Unremarkable. The patient is edentulous. IMPRESSION: Moderate chronic appearing right sphenoid sinus disease. Tiny bilateral maxillary mucus retention cysts. No erosive bone findings. RADIA
[2018-02-10] MEDS ORDERED: SODIUM CHLORIDE 0.9% 1,000 ML IV ONE (14:56)
[2018-02-10 18:04] VITALS: BP 148/84
== END 2018-02-10 17:55 | disposition short-term general hospital (02) ==
LOC: ED 11:29
DX: E86.0 Dehydration (principal); R09.02 Hypoxemia; K12.2 Cellulitis and abscess of mouth; J18.1 Lobar pneumonia, unspecified organism; G20 Parkinson's disease
CPT/HCPCS: 36415; 70486; 71046; 80053; 83605; 83690; 83735; 85025; 87040; 87070; 87205; 94640; 94664; 96365; 96367; 96375; 99284

== ENCOUNTER 2018-02-10 17:55 | Outpatient (CLI) | payer MEDICARE, BC | END 2018-02-10 17:56 | disposition short-term general hospital (02) | LOC: EMS 17:55 | PROVIDERS: ATTEND Surgery | DX: K13.79 Other lesions of oral mucosa (principal); R10.9 Unspecified abdominal pain; R53.1 Weakness | CPT/HCPCS: A0425; A0428 ==

== ENCOUNTER 2018-04-02 21:13 | Emergency (ER) | payer MEDICARE, BC ==
[2018-04-02 21:45] VITALS: BP 134/98
--- NOTE | 2018-04-02 21:45 | ED Physician Documentation ---
History of Present Illness - Stated complaint Stated Complaint: FEMALE - Chief complaint Chief Complaint: General - History obtained from History obtained from: Family (daughter) - History of Present Illness Timing: Other (daugher noticed left buttock swelling, redness tonight) Review of Systems Constitutional: denies: Fever Skin: reports: Rash PD PAST MEDICAL HISTORY - Past Medical History Cardiovascular: None Respiratory: Pneumonia Neuro: Parkinson's Endocrine/Autoimmune: None GI: Other : None Musculoskeletal: Osteoarthritis Derm: None - Past Surgical History Past Surgical History: Yes - Present Medications Home Medications: Ambulatory Orders Medication Instructions Recorded Confirmed Carbidopa/Levodopa [Carbidopa-Levo 1 each PO 01/03/18 ER 25-100 Tab] Sulfamethox/Trimeth 800/160 1 each PEG BID #14 tablet 04/02/18 [Bactrim Ds 800/160] - Allergies Allergies/Adverse Reactions: Allergies Allergy/AdvReac Type Severity Reaction Status Date / Time No Known Drug Allergies Allergy Verified 04/02/18 21:23 - Social History Does the pt smoke?: No Smoking Status: Never smoker Does the pt drink ETOH?: No Does the pt have substance abuse?: No - Immunizations Immunizations are current?: Yes - POLST Patient has POLST: Yes POLST Status: Full Code PD ED PE NORMAL - Vitals Vital signs reviewed: Yes - General General: Alert and oriented X 3 (awake, alert; follows simple commands. she does not answer questions nor verbally communicate with me; daughter says this is because patient is upset that she was brought to ED ), No acute distress, Well developed/nourished - Abdomen Abdomen: Soft, Non tender - Derm Derm: Other (midline sacral stage I decubitus ulcerations without fluctuance, discharge, tenderness (daughter indicates these are not new, and these have been gradually improving). left buttock: there is a 4-5 cm stage II decubitus ulcer over left ischium with surrounding erythema, induration, mild tenderness but no fluctuance or discharge (daughter indicates this is a new lesion)) Results - Vitals Vitals: Oxygen O2 Source [With Activity] Room air O2 Source Room air PD MEDICAL DECISION MAKING - ED course Complexity details: considered differential, d/w patient Departure - Departure Disposition: 01 Home, Self Care Clinical Impression: Pressure sore on buttocks, Cellulitis of buttock, left Condition: Good Instructions: ED Infec Skin Cellulitis, ED Pressure Injury Follow-Up: Rogelio James MD [Primary Care Provider] - (4-5 days if not improving) Prescriptions: Sulfamethox/Trimeth 800/160 [Bactrim Ds 800/160] 1 each PEG BID #14 tablet Discharge Date/Time: 04/02/18 22:50
[2018-04-02] MEDS ORDERED: CLINDAMYCIN 150 MG CAPSULE PO STA (22:08)
[2018-04-02] MEDS ORDERED: SULFAMETH/TRIMETH DS 800/160 MG TABLET PO STA (22:11)
== END 2018-04-02 22:50 | disposition home or self-care (01) ==
LOC: ED 21:13
DX: L89.322 Pressure ulcer of left buttock, stage 2 (principal); L03.317 Cellulitis of buttock; G20 Parkinson's disease
CPT/HCPCS: 99283; A9270

== ENCOUNTER 2018-04-28 11:03 | Outpatient (CLI) | payer MEDICARE, BC | END 2018-04-28 11:04 | disposition EMS.NT | LOC: EMS 11:03 | PROVIDERS: ATTEND Surgery | DX: I46.9 Cardiac arrest, cause unspecified (principal) ==